=== PATIENT | male | born 1970 | race Caucasian/White ===

== ENCOUNTER 2017-12-28 13:40 | Emergency (ER) | payer OTHER ==
[~2017-12-28] VITALS: Ht 177.8 cm; Wt 51.8 kg
[2017-12-28] MEDS ORDERED: FENTANYL1 EAC3 TD (13:52)
[2017-12-28] MEDS ORDERED: CARISOPRODOL350 MG PO (13:53)
[2017-12-28] MEDS ORDERED: MORPHINE SULFAT30 M5 PO (13:54)
[2017-12-28 14:23] LABS: HEMATOCRIT 39.5 % (38.0-50.0); MCHC 32.9 G/DL (30.0-36.0); PLATELET COUNT 253 K/uL (156-360); RED BLOOD COUNT 4.34 M/uL (4.00-5.50); WHITE BLOOD COUNT 6.8 K/uL (4.1-10.2)
[2017-12-28 14:34] LABS: CHLORIDE 108 mEq/L (99-109); POTASSIUM 4.1 mEq/L (3.7-5.4); SODIUM 144 mEq/L (136-147)
[2017-12-28 14:36] LABS: GLUCOSE 91 mg/dL (70-99)
[2017-12-28 14:40] LABS: CREATININE 0.8 mg/dL (0.6-1.3); GFR ESTIMATE (CALCULATED) > 59 mL/min/ (58.99-99999); UREA NITROGEN (BUN) 7 mg/dL (9-23)
[2017-12-28] MEDS ORDERED: ROXICODONE5 MG PO (14:47)
[2017-12-28] MEDS ORDERED: FLEXERIL10 MG PO (14:52)
[2017-12-28 16:45] VITALS: BP 114/71
== END 2017-12-28 16:53 | disposition home or self-care (01) ==
LOC: EME 13:40
PROVIDERS: Emergency Medicine
DX: G89.29 Other chronic pain (principal); R11.0 Nausea; G35 Multiple sclerosis; Z87.891 Personal history of nicotine dependence
CPT/HCPCS: 80048; 85027; 99281; 99285; J2270

== ENCOUNTER 2018-01-04 12:07 | Observation (INO) | payer OTHER ==
[~2018-01-04] VITALS: Ht 167.6 cm; Wt 44.3 kg
[~2018-01-04 12:07] MED LIST: CARISOPRODOL350 MG PO; FENTANYL1 EAC3 TD; FLEXERIL10 MG PO; MORPHINE SULFAT30 M5 PO; ROXICODONE5 MG PO
[2018-01-04] MEDS ORDERED: MELOXICAM15 MG PO (12:49)
[2018-01-04] MEDS ORDERED: NEURONTIN800 MG PO (12:49)
[2018-01-04] MEDS ORDERED: DITROPAN XL10 MG PO (12:50)
[2018-01-04] MEDS ORDERED: XANAX1 MG PO (12:50)
[2018-01-04 13:23] LABS: ALBUMIN 3.3 g/dL (3.2-4.8); CHLORIDE 108 mEq/L (99-109); POTASSIUM 4.1 mEq/L (3.7-5.4); SODIUM 142 mEq/L (136-147)
[2018-01-04 13:25] LABS: GLUCOSE 79 mg/dL (70-99); TOTAL PROTEIN 5.4 g/dL (6.4-8.3)
[2018-01-04 13:27] LABS: TOTAL BILIRUBIN 0.2 mg/dL (0.0-1.0)
[2018-01-04 13:28] LABS: SERUM ETHYL ALCOHOL < 10 mg/dL
[2018-01-04 13:29] LABS: ALKALINE PHOSPHATASE 81 IU/L (3-129); CREATININE 0.7 mg/dL (0.6-1.3); GFR ESTIMATE (CALCULATED) > 59 mL/min/ (58.99-99999)
[2018-01-04 13:30] LABS: AST (GOT) 11 IU/L (2-34); DIRECT BILIRUBIN 0.1 mg/dL (0.0-0.3); UREA NITROGEN (BUN) 16 mg/dL (9-23)
[2018-01-04 13:32] LABS: ALT (GPT) 7 IU/L (3-49)
[2018-01-04 15:52] LABS: APPEARANCE CLEAR ((CLEAR)); BILIRUBIN NEGATIVE; BLOOD NEGATIVE; COLOR YELLOW ((YELLOW)); GLUCOSE (STRIP) NEGATIVE; KETONES NEGATIVE; LEUKOCYTES NEGATIVE; NITRITE NEGATIVE; PROTEIN (STRIP) NEGATIVE; SPECIFIC GRAVITY 1.017 (1.000-1.030); UROBILINOGEN 0.2 MG/DL (0.2-1.0)
[2018-01-04 16:01] LABS: AMPHETAMINE NEGATIVE (500 ng/mL); BARBITURATES NEGATIVE (200 ng/mL); BENZODIAZEPINES PRESUMPTIVE POSITIVE (150 ng/mL); BUPRENORPHINE NEGATIVE (10 ng/mL); COCAINE NEGATIVE (150 ng/mL); METHADONE NEGATIVE (200 ng/mL); METHAMPHETAMINE NEGATIVE (500 ng/mL); OPIATES (MORPHINE) NEGATIVE (100 ng/mL); OXYCODONE NEGATIVE (100 ng/mL); PHENCYCLIDINE NEGATIVE (25 ng/mL); PROPOXYPHENE NEGATIVE (300 ng/mL); THC CANNABINOIDS NEGATIVE (50 ng/mL); TRICYCLIC ANTIDEPRESSANTS NEGATIVE (300 ng/mL)
[2018-01-04 16:56] LABS: BENZODIAZEPINES, URINE SCREEN POSITIVE (200 ng/mL)
[2018-01-04 17:02] LABS: BASOPHIL (%) 0.4 % (0-1); EOSINOPHIL COUNT 0.2 K/uL (0-0.3); HEMATOCRIT 40.9 % (38.0-50.0); HEMOGLOBIN 13.3 G/DL (12.5-16.6); IMMATURE GRANULOCYTE (%) 0.3 % (0.0-0.7); LYMPHOCYTE (%) 25.2 % (15-42); LYMPHOCYTE COUNT 2.3 K/uL (1.0-2.8); MCH 29.8 PG (29.0-34.0); MCHC 32.5 G/DL (30.0-36.0); MCV 91.7 FL (86-99); MONOCYTE (%) 4.7 % (3-12); MONOCYTE COUNT 0.4 K/uL (0-0.8); NEUTROPHIL (%) 67.4 % (45-76); NEUTROPHIL COUNT 6.1 K/uL (1.8-6.4); PLATELET COUNT 194 K/uL (156-360); RBC DIS.WIDTH-CV 13.2 % (11.8-14.6); RBC DIS.WIDTH-SD 44.8 % (39-53); RED BLOOD COUNT 4.46 M/uL (4.00-5.50); WHITE BLOOD COUNT 9.1 K/uL (4.1-10.2)
[2018-01-04 17:18] LABS: ACETAMINOPHEN (TYLENOL) < 10 mcg/mL (10-30); SALICYLATE < 5.0 MG/DL (15-30)
[2018-01-04 20:05] VITALS: BP 100/59
[2018-01-05 00:05] VITALS: BP 100/55
[2018-01-05 04:05] VITALS: BP 103/70
[2018-01-05] MEDS ORDERED: FLEXERIL10 MG PO ×2 (04:41→18:45)
[2018-01-05] MEDS ORDERED: ROXICODONE5 MG PO ×2 (04:41→18:45)
[2018-01-05 06:01] LABS: HEMATOCRIT 39.3 % (38.0-50.0); HEMOGLOBIN 12.9 G/DL (12.5-16.6); MCH 30.3 PG (29.0-34.0); MCHC 32.8 G/DL (30.0-36.0); MCV 92.3 FL (86-99); PLATELET COUNT 191 K/uL (156-360); RBC DIS.WIDTH-SD 43.8 % (39-53); RED BLOOD COUNT 4.26 M/uL (4.00-5.50); WHITE BLOOD COUNT 8.5 K/uL (4.1-10.2)
[2018-01-05 06:04] LABS: CHLORIDE 106 MEQ/L (99-109); CREATININE 0.7 MG/DL (0.6-1.3); GFR ESTIMATE (CALCULATED) > 59 mL/min/ (58.99-99999); POTASSIUM 3.7 MEQ/L (3.7-5.4); SODIUM 141 MEQ/L (136-147); UREA NITROGEN (BUN) 11 mg/dL (9-23)
[2018-01-05 06:23] LABS: GLUCOSE 109 mg/dL (70-99)
[2018-01-05 07:38] VITALS: BP 97/60
[2018-01-05 11:30] VITALS: BP 98/52
[2018-01-05 15:23] VITALS: BP 95/63
== END 2018-01-05 20:02 | disposition home or self-care (01) ==
LOC: EME 12:07 → EDOF 17:11 → 4SOUTH 17:11 → EDOF 17:11 → ENRESERV 17:18 → 4SOUTH 19:32
PROVIDERS: Emergency Medicine; Hospitalist
DX: T42.4X1A Poisoning by benzodiazepines, accidental (unintentional), initial encounter (principal); I95.9 Hypotension, unspecified; F32.9 Major depressive disorder, single episode, unspecified; J43.9 Emphysema, unspecified; F41.9 Anxiety disorder, unspecified; G35 Multiple sclerosis; G89.29 Other chronic pain; R53.1 Weakness; Z87.891 Personal history of nicotine dependence
CPT/HCPCS: 71045; 80048; 80076; 81003; 84999; 85025; 85027; 93005; 99281; 99285; G0378; G0480; J1644; J2270; J2310; J7030